=== PATIENT | male | born 1980 | race Caucasian/White ===

== ENCOUNTER 2018-12-15 17:40 | Emergency (ER) | payer OTHER ==
[~2018-12-15] VITALS: Ht 167.6 cm; Wt 90.7 kg
[2018-12-15 18:10] VITALS: Ht 167.6 cm; Wt 90.7 kg
[2018-12-15 20:26] VITALS: BP 145/99
== END 2018-12-15 20:26 | disposition home or self-care (01) ==
LOC: ED 17:40
DX: L73.9 Follicular disorder, unspecified (principal); R03.0 Elevated blood-pressure reading, without diagnosis of hypertension